=== PATIENT | male | born 1930 | race Caucasian/White ===

== ENCOUNTER 2019-07-31 10:13 | Emergency (ER) | payer OTHER ==
[~2019-07-31] VITALS: Ht 172.7 cm; Wt 61.2 kg
[2019-07-31 11:27] LABS: Urine Bacteria NONE SEEN /hpf (None Seen); Urine Blood 2+ /uL (Negative); Urine Specific Gravity 1.014 (1.001-1.035); Urine WBC 1162 /hpf (0 - 3)
[2019-07-31 12:33] VITALS: BP 142/67
== END 2019-07-31 12:35 | disposition home or self-care (01) ==
LOC: ER 10:13
DX: N39.0 Urinary tract infection, site not specified (principal); R33.9 Retention of urine, unspecified; E78.5 Hyperlipidemia, unspecified
CPT/HCPCS: 51702; 81001